=== PATIENT | female | born 1985 | race African-American/Black ===

== ENCOUNTER 2016-10-02 09:08 | Observation (INO) | payer OTHER ==
[~2016-10-02] VITALS: Ht 162.6 cm; Wt 76.6 kg
[~2016-10-02 09:08] MED LIST: DICL75 PO
[2016-10-02 09:16] VITALS: BP 114/71; PULSE 95; RESP 15; TEMP 97.8; O2SAT 99
[2016-10-02] MEDS ORDERED: SODIUM CHLORIDE 0.9% FLUSH 5 ML FLUSH IVF PRN ×2 (10:00→17:45)
[2016-10-02] MEDS ORDERED: ONDANSETRON HCL 4 MG/2 ML VIAL IVP ONE (10:00)
[2016-10-02] MEDS ORDERED: MORPHINE SULFATE 4 MG/ML INJ IV PUSH ONE (10:00)
--- NOTE | 2016-10-02 10:01 | PD ---
HPI Chief Complaint: Abdominal Pain Time Seen by Provider: 09:52 Travel History International Travel<30 days: No Contact w/Intl Traveler<30days: No Traveled to known affect area: No History of Present Illness HPI Patient is a 31-year-old female at 2.5 days of abdominal pain. States the pain is crampy, epigastric and right upper quadrant/right flank mild to moderate. She denies any nausea, vomiting, fevers or chills. No abnormal bowel or bladder symptoms. Patient has had a previous tubal ligation and does not believe she could be . Menses are regular. Previous abdominal hernia repair surgery. No history of obstruction. PFSH Past Medical History Blood Disorders: No Anxiety: Yes Cancer: Yes (CERVICAL) Diminished Hearing: No Hypertension: Yes (NO MEDS) Reproductive: Yes (HX HPV) Immunizations Current: Yes ?: Not : 3 Para: 3 Miscarriage: 0 : 0 Ectopic : No Ovarian Cysts: No Tubal Ligation: Yes (2006) Past Surgical History Abdominal Surgery: Yes ( UMBILICAL HERNIA REPAIR NOVEMBER 2013) Gynecologic Surgery: Yes (LEEP PROCEDURE ) Hysterectomy: No Social History Alcohol Use: No Tobacco Use: No Substance Use: No Allergies-Medications (Allergen,Severity, Reaction): Coded Allergies: Antivert (Verified Allergy, Intermediate, hives, 05/11/16) Reported Meds & Prescriptions Reported Meds & Active Scripts Active No Active Prescriptions or Reported Medications Review of Systems Except as stated in HPI: all other systems reviewed are Neg Physical Exam Narrative GENERAL: Well-appearing female in no acute distress SKIN: Warm and dry. HEAD: Normocephalic. EYES: No scleral icterus. No injection or drainage. ENT: Mucous membranes pink and moist. NECK: Supple CARDIOVASCULAR: Regular rate and rhythm. RESPIRATORY: No accessory muscle use. GASTROINTESTINAL: Abdomen soft, right upper quadrant and right flank less then epigastric tenderness to palpation without rebound or guarding. Old surgical scars well-healed MUSCULOSKELETAL: Normal gait NEUROLOGICAL: Awake and alert. Normal speech. PSYCHIATRIC: Appropriate mood and affect; insight and judgment normal. Data Data Last Documented VS Vital Signs Date Time Temp Pulse Resp B/P Pulse Ox O2 Delivery O2 Flow Rate FiO2 10/02/16 12:58 18 10/02/16 12:55 92 119/68 97 Room Air 10/02/16 09:16 97.8 Orders Complete Blood Count With Diff (10/02/16 09:54) Comprehensive Metabolic Panel (10/02/16 09:54) Lipase (10/02/16 09:54) Urinalysis - C+S If Indicated (10/02/16 09:54) Us Abdomen Gallbladder (10/02/16 ) Iv Access Insert/Monitor (10/02/16 09:54) Ecg Monitoring (10/02/16 09:54) Oximetry (10/02/16 09:54) Morphine Inj (Morphine Inj) (10/02/16 10:00) Ondansetron Inj (Zofran Inj) (10/02/16 10:00) Sodium Chloride 0.9% Flush (Ns Flush) (10/02/16 10:00) Ed Urine Pregnancytest Poc (10/02/16 09:54) Acetaminophen (Tylenol) (10/02/16 10:15) Ct Abd/Pel W/O Iv Contrast (10/02/16 12:28) Ketorolac Inj (Toradol Inj) (10/02/16 12:45) Ketorolac Inj (Toradol Inj) (10/02/16 12:45) Piperacil-Tazo 4.5 Gm Premix (Zosyn 4.5 (10/02/16 14:15) Labs Laboratory Tests Test 10/02/16 10/02/16 09:55 10:05 White Blood Count 13.2 TH/MM3 Red Blood Count 4.95 MIL/MM3 Hemoglobin 12.4 GM/DL Hematocrit 38.3 % Mean Corpuscular Volume 77.5 FL Mean Corpuscular Hemoglobin 25.0 PG Mean Corpuscular Hemoglobin 32.3 % Concent Red Cell Distribution Width 14.2 % Platelet Count 361 TH/MM3 Mean Platelet Volume 7.9 FL Neutrophils (%) (Auto) 88.7 % Lymphocytes (%) (Auto) 5.8 % Monocytes (%) (Auto) 5.0 % Eosinophils (%) (Auto) 0.3 % Basophils (%) (Auto) 0.2 % Neutrophils # (Auto) 11.7 TH/MM3 Lymphocytes # (Auto) 0.8 TH/MM3 Monocytes # (Auto) 0.7 TH/MM3 Eosinophils # (Auto) 0.0 TH/MM3 Basophils # (Auto) 0.0 TH/MM3 CBC Comment DIFF FINAL Differential Comment Sodium Level 136 MEQ/L Potassium Level 4.0 MEQ/L Chloride Level 104 MEQ/L Carbon Dioxide Level 24.0 MEQ/L Anion Gap 8 MEQ/L Blood Urea Nitrogen 8 MG/DL Creatinine 0.88 MG/DL Estimat Glomerular Filtration 90 ML/MIN Rate Random Glucose 118 MG/DL Calcium Level 9.1 MG/DL Total Bilirubin 0.5 MG/DL Aspartate Amino Transf 19 U/L (AST/SGOT) Alanine Aminotransferase 12 U/L (ALT/SGPT) Alkaline Phosphatase 69 U/L Total Protein 8.6 GM/DL Albumin 3.5 GM/DL Lipase 112 U/L Urine Color YELLOW Urine Turbidity HAZY Urine pH 5.5 Urine Specific [place] 1.028 Urine Protein TRACE mg/dL Urine Glucose (UA) NEG mg/dL Urine Ketones NEG mg/dL Urine Occult Blood NEG Urine Nitrite NEG Urine Bilirubin NEG Urine Urobilinogen 2.0 MG/DL Urine Leukocyte Esterase NEG Urine RBC 1 /hpf Urine WBC 1 /hpf Urine Squamous Epithelial 5 /hpf Cells Urine Mucus MANY /lpf Microscopic Urinalysis Comment CULT NOT INDICATED MDM Medical Decision Making Medical Screen Exam Complete: Yes Emergency Medical Condition: Yes Medical Record Reviewed: Yes Differential Diagnosis 31-year-old female with previous abdominal hernia repair, tubal ligation here with complaint of right upper quadrant/right flank pain for the last 2.5 days. Differential includes hepatobiliary pathology, pancreatitis, gastritis, peptic ulcer disease, pyelonephritis, ureterolithiasis and less likely appendicitis, bowel obstruction, /ectopic . Narrative Course Patient placed on monitor, IV established and blood obtained. Morphine and Zofran ordered but patient declines requesting Tylenol only which was administered. CBC, CMP, lipase, urinalysis and urine test obtained and notable for WBC 13.2. Ultrasound the gallbladder showed fluid adjacent to the pancreatic head unsure whether this is free fluid or fluid filled bowel. Patient still uncomfortable and continuing to decline morphine. Given Toradol instead. CT of the abdomen and pelvis obtained showing acute appendicitis. Patient was given Zosyn and will be admitted to surgery for further operative management. Diagnosis Primary Impression: Acute appendicitis Qualified Code: K35.3 - Acute appendicitis with localized peritonitis Admitting Information Admitting Physician Requests: Observation Scripts No Active Prescriptions or Reported Meds Berkley Poole MD Oct 02, 2016 10:01
[2016-10-02] MEDS ORDERED: ACETAMINOPHEN 500 MG CPLT PO ONE (10:15)
[2016-10-02 10:17] LABS: AUTOMATED NEUTROPHIL # 11.7 TH/MM3 (1.8-7.7); BASOPHIL % 0.2 % (0.0-2.0); EOSINOPHIL % 0.3 % (0.0-4.0); HEMATOCRIT 38.3 % (35.0-46.0); HEMO FLAGS DIFF FINAL; LYMPH % 5.8 % (9.0-44.0); LYMPHOCYTE # 0.8 TH/MM3 (1.0-4.8); MEAN CELL VOLUME 77.5 FL (80.0-100.0); MEAN CORPUSCULAR HGB CONC 32.3 % (32.0-36.0); NEUT % 88.7 % (16.0-70.0); PLATELET COUNT 361 TH/MM3 (150-450); RED BLOOD COUNT 4.95 MIL/MM3 (4.00-5.30); RED CELL DISTRIBUTION WIDTH 14.2 % (11.6-17.2); WHITE BLOOD COUNT 13.2 TH/MM3 (4.0-11.0)
[2016-10-02 10:24] LABS: BLOOD, URINE NEG (NEG); COMMENT (UR) CULT NOT INDICATED; GLUCOSE,URINE NEG (NEG); KETONE, URINE NEG (NEG); MUCUS URINE MANY /lpf (OCC); NITRITE,URINE NEG (NEG); PH, URINE 5.5 (5.0-8.5); SQUAMOUS EPITHELIAL CELL URINE 5 /hpf (0-5); URINE COLOR YELLOW (YELLW/STRAW)
[2016-10-02 10:25] LABS: CULTURE IF INDICATED CULT NOT INDICATED
[2016-10-02 10:38] LABS: ALKALINE PHOSPHATASE 69 U/L (45-117); ALT (GPT) 12 U/L (10-53); ANION GAP 8 MEQ/L (5-15); AST (GOT) 19 U/L (15-37); BLOOD UREA NITROGEN 8 MG/DL (7-18); CHLORIDE 104 MEQ/L (98-107); GLOMERULAR FILTRATION RATE 90 ML/MIN (>89); SODIUM (NA) 136 MEQ/L (136-145); TOTAL BILIRUBIN ADULT 0.5 MG/DL (0.2-1.0)
[2016-10-02] MEDS ORDERED: ONDANSETRON HCL 4 MG/2 ML VIAL IV PUSH ONE (12:00)
[2016-10-02] MEDS ORDERED: NEOSTIGMINE 3 MG/3 ML SYR IV ONE (12:00)
[2016-10-02] MEDS ORDERED: PROPOFOL 200 MG/20 ML AMP IV ONE (12:00)
[2016-10-02 12:19] VITALS: PULSE 83; RESP 18; O2SAT 99
--- NOTE | 2016-10-02 12:25 | RADRPT ---
EXAM DATE/TIME: 10/02/2016 10:57 [facility] COMPARISON: No previous studies available for comparison. INDICATIONS : Right upper quadrant pain. MEDICAL HISTORY : Hypertension. Cervical cancer. HPV. SURGICAL HISTORY : Tubal ligation. Umbilical hernia repair. LEEP. ENCOUNTER: Initial ACUITY: 1 day PAIN SCORE: 0/10 LOCATION: Right upper quadrant MEASUREMENTS: LIVER: 14.2 cm length COMMON DUCT: 4 mm RIGHT KIDNEY: 11.7 x 3.9 x 5.3 cm FINDINGS: LIVER: Normal echotexture without focal lesion or ductal dilatation. COMMON DUCT: No intraluminal mass or stone visualized. GALLBLADDER: Contains no stones, demonstrates no wall thickening or pericholecystic fluid. PANCREAS: The visualized portions are within normal limits. There is some fluid seen medial to the pancreatic head. Isn't certain if this is free fluid or essentially within the adjacent duodenum. RIGHT KIDNEY: No evidence of hydronephrosis, stone, or mass. CONCLUSION: Fluid seen adjacent to the pancreatic head. It is uncertain if this is free fluid or related to fluid -filled bowel. Christopher Oneill MD on October 02, 2016 at 12:18 Board Certified Radiologist. This report was verified electronically.
[2016-10-02] MEDS ORDERED: KETOROLAC TROMETHAMINE 30 MG/ML (IVP) VIAL IV PUSH ONE (12:45)
[2016-10-02] MEDS ORDERED: KETOROLAC TROMETHAMINE 60 MG/2 ML (IM) VIAL IM ONE (12:45)
[2016-10-02 12:55] VITALS: BP 119/68; PULSE 92; RESP 18; O2SAT 97
--- NOTE | 2016-10-02 14:10 | RADRPT ---
EXAM DATE/TIME: 10/02/2016 13:24 [facility] COMPARISON: No previous studies available for comparison. INDICATIONS : Mid abdomen pain radiating to back for two days. ORAL CONTRAST: No oral contrast ingested. RADIATION DOSE: 8.32 CTDIvol (mGy) MEDICAL HISTORY : Hypertension. Hernia, umbilical. Cervical cancer SURGICAL HISTORY : Tubal ligation. Umbilical hernia repair.Loop procedure ENCOUNTER: Initial ACUITY: 2 days PAIN SCALE: 9/10 LOCATION: Abdomen TECHNIQUE: Volumetric scanning of the abdomen and pelvis was performed. Using automated exposure control and ad justment of the mA and/or kV according to patient size, radiation dose was kept as low as reasonably achievable to obtain optimal diagnostic quality images. FINDINGS: LOWER LUNGS: The visualized lower lungs are clear. LIVER: Homogeneous density without lesion. There is no dilation of the biliary tree. No calcified gallston es. SPLEEN: Normal size without lesion. PANCREAS: Within normal limits. KIDNEYS: Normal in size and shape. There is no mass, stone, or hydronephrosis. ADRENAL GLANDS: Within normal limits. VASCULAR: There is no aortic aneurysm. BOWEL/MESENTERY: Extensive inflammatory changes right lower quadrant. Inflamed prominent tubular structure right lower quadrant consistent with appendicitis. No abscess. There is some minimal fluid present. No extralumi nal air. ABDOMINAL WALL: Within normal limits. RETROPERITONEUM: There is no lymphadenopathy. BLADDER: No wall thickening or mass. REPRODUCTIVE: Within normal limits. INGUINAL: There is no lymphadenopathy or hernia. MUSCULOSKELETAL: Within normal limits for patient age. CONCLUSION: 1. Findings consistent with acute appendicitis with adjacent inflammatory changes and fluid. 2. Abdomen/pelvis is otherwise unremarkable. Sriram Wood MD on October 02, 2016 at 14:07 Board Certified Radiologist. This report was verified electronically.
[2016-10-02] MEDS ORDERED: PIPERACIL-TAZO 4.5 GM PREMIX 100 ML IV ONE (14:15)
--- NOTE | 2016-10-02 14:47 | HHI.HP ---
HPI Service General surgery Primary Care Physician No Primary Care Physician Admission Diagnosis appendicitis Chief Complaint: Abdominal pain History of Present Illness This is a 31-year-old female who presents with 2 days of abdominal pain. Initially she had a more vague upper abdominal pain which she felt was bad gas. It persisted and became more localized in the periumbilical and right mid abdomen. She tried milk of magnesia which did not help. She tried to go to work today and she had nausea and vomiting. She's had some chills. She never had pain like this before. She has a past surgical history of tubal ligation and umbilical hernia repair with mesh. 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 She was evaluated in the emergency department and noted to have leukocytosis of 13,000. She had right upper quadrant pain and therefore gallbladder ultrasound was ordered. However, it was unremarkable. A CT scan was then ordered and she was found to have inflammation along the right colon with a dilated and inflamed appendix. Review of Systems Constitutional: COMPLAINS OF: Chills, DENIES: Fatigue Eyes: DENIES: Eye inflammation, Eye pain Respiratory: DENIES: Cough, Shortness of breath Cardiovascular: DENIES: Chest pain, Palpitations Gastrointestinal: COMPLAINS OF: Abdominal pain, Nausea, Vomiting Musculoskeletal: DENIES: Muscle aches, Stiffness Integumentary: DENIES: Pruritus, Rash Neurologic: DENIES: Headache, Localized weakness Past Family Social History Past Medical History None Past Surgical History Tubal ligation Umbilical hernia with mesh Reported Medications Reported Meds & Active Scripts Active No Active Prescriptions or Reported Medications Allergies: Coded Allergies: Antivert (Verified Allergy, Intermediate, hives, 05/11/16) Active Ordered Medications Current Medications Medications (Trade) Dose Ordered Sig/Rigoberto Route Start Time Stop Time Status Last Admin IV Flush 2 ml 2 ml UNSCH PRN IVF 10/02/16 10:00 (Zosyn 4.5 Gm Premix) 100 ml @ 200 mls/hr ONCE ONCE IV 10/02/16 14:15 10/02/16 14:44 Family History Noncontributory Social History 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 She denies tobacco or alcohol use. Physical Exam Vital Signs Vital Signs Date Time Temp Pulse Resp B/P Pulse Ox O2 Delivery O2 Flow Rate FiO2 10/02/16 12:58 18 10/02/16 12:55 92 18 119/68 97 Room Air 10/02/16 12:19 83 18 99 Room Air 10/02/16 09:16 97.8 95 15 114/71 99 Physical Exam GENERAL: Awake and alert. No acute distress. Cooperative. HEAD: Normocephalic. Atraumatic. EYES: Pupils equal round and reactive to light bilaterally. No scleral icterus. CHEST: Lungs clear to auscultation bilaterally with no wheezing or rhonchi. No respiratory distress. CARDIOVASCULAR: Regular rate and rhythm. ABDOMEN: Well-healed port site incisions. Soft. Mild tenderness to palpation in the right lower quadrant. A mass is palpable and there is some overlying muscle guarding. EXTREMITIES: No cyanosis or edema. SKIN: Warm, dry, nonjaundiced. Laboratory Laboratory Tests Test 10/02/16 10/02/16 09:55 10:05 White Blood Count 13.2 Red Blood Count 4.95 Hemoglobin 12.4 Hematocrit 38.3 Mean Corpuscular Volume 77.5 Mean Corpuscular Hemoglobin 25.0 Mean Corpuscular Hemoglobin 32.3 Concent Red Cell Distribution Width 14.2 Platelet Count 361 Mean Platelet Volume 7.9 Neutrophils (%) (Auto) 88.7 Lymphocytes (%) (Auto) 5.8 Monocytes (%) (Auto) 5.0 Eosinophils (%) (Auto) 0.3 Basophils (%) (Auto) 0.2 Neutrophils # (Auto) 11.7 Lymphocytes # (Auto) 0.8 Monocytes # (Auto) 0.7 Eosinophils # (Auto) 0.0 Basophils # (Auto) 0.0 CBC Comment DIFF FINAL Differential Comment Sodium Level 136 Potassium Level 4.0 Chloride Level 104 Carbon Dioxide Level 24.0 Anion Gap 8 Blood Urea Nitrogen 8 Creatinine 0.88 Estimat Glomerular Filtration 90 Rate Random Glucose 118 Calcium Level 9.1 Total Bilirubin 0.5 Aspartate Amino Transf 19 (AST/SGOT) Alanine Aminotransferase 12 (ALT/SGPT) Alkaline Phosphatase 69 Total Protein 8.6 Albumin 3.5 Lipase 112 Urine Color YELLOW Urine Turbidity HAZY Urine pH 5.5 Urine Specific Burt 1.028 Urine Protein TRACE Urine Glucose (UA) NEG Urine Ketones NEG Urine Occult Blood NEG Urine Nitrite NEG Urine Bilirubin NEG Urine Urobilinogen 2.0 Urine Leukocyte Esterase NEG Urine RBC 1 Urine WBC 1 Urine Squamous Epithelial 5 Cells Urine Mucus MANY Microscopic Urinalysis Comment CULT NOT INDICATED Result Diagram: 10/02/16 0955 10/02/[address] abdomen and pelvis shows appendicitis with adjacent inflammation and fluid Assessment and Plan Assessment and Plan 31-year-old female with acute appendicitis. She has history of umbilical hernia repair with mesh. I recommend to proceed with laparoscopic, possible open, appendectomy. I discussed the surgery in detail including risk and benefits with the patient and her mother. She desires to proceed. Plan for likely discharge home tomorrow. Pancho,Kirit DELGADO Oct 02, 2016 14:47
[2016-10-02 15:03] VITALS: BP 146/85; PULSE 88; RESP 18; TEMP 98.1; O2SAT 100
[2016-10-02] MEDS ORDERED: BUPIVACAINE/EPINEPHRINE 0.5% PF 30 ML VIAL ONE (15:05)
[2016-10-02] MEDS ORDERED: FAMOTIDINE 20 MG/2 ML VIAL ONE (15:51)
[2016-10-02] MEDS ORDERED: MIDAZOLAM HCL 2 MG/2 ML VIAL ONE (15:52)
[2016-10-02] MEDS ORDERED: DEXAMETHASONE SOD PHOS 4 MG/ML VIAL ONE (15:52)
[2016-10-02] MEDS ORDERED: ONDANSETRON HCL 4 MG/2 ML VIAL IV PRN (17:45)
[2016-10-02] MEDS ORDERED: MORPHINE SULFATE 4 MG/ML INJ IV PRN (17:45)
[2016-10-02] MEDS ORDERED: NALOXONE HCL 0.4 MG/ML AMP IV PRN (17:45)
[2016-10-02] MEDS ORDERED: Post-op Orders (for Pharmacy) MISC XX ONE (17:45)
[2016-10-02] MEDS: PANTOPRAZOLE SODIUM 40 MG VIAL IV SCH (17:45)
[2016-10-02] MEDS ORDERED: diphenhydrAMINE HCL 50 MG/ML VIAL IV PRN (17:45)
--- NOTE | 2016-10-02 17:47 | PD.OP ---
cc: Kirit Deleon MD Operative Report Date of Surgery: Oct 02, 2016 Preoperative Diagnosis: (1) Acute appendicitis Postoperative Diagnosis: (1) Acute appendicitis with appendiceal abscess Procedure: Laparoscopic appendectomy Anesthesia: GETA Surgeon: Kirit Deleon Pit Manager(s): Erin Joiner CFA Operation and Findings: EBL: 5 cc Complications: None apparent Operative findings: The patient had inflamed distended appendix. The midportion of the appendix was densely adherent to the lateral wall of the cecum. The tip of the appendix was buried towards the retroperitoneum. There was pus pocket identified and drained during the procedure. A drain was placed. The patient also had omental adhesions to the umbilical area with mesh visualized. Ports were placed to avoid the mesh. Procedure in detail: The patient was taken to the operating room placed in the supine position with left arm tucked. General endotracheal anesthesia was induced and the abdomen was prepped and draped in usual sterile fashion. Surgical timeout was performed to verify correct patient procedure and site. Perioperative antibiotics were administered as necessary. Local anesthetic was injected in the skin and subcutaneous tissue in the left mid abdomen and a 5 mm incision made. Using the 5 mm Optiview trocar with laparoscope the abdomen was directly entered. Was then insufflated to 15 mmHg with CO2 gas which the patient tolerated well. The patient was then placed in Trendelenburg position and turned slightly to the left. A 5 mm mm port was placed under laparoscopic visualization of the suprapubic area. The periumbilical area had omental adhesions and mesh was visualized. Just inferior to the mesh a 5 mm port was placed. The suprapubic port was then changed to a 12 mm port. Attention was turned to the right lower quadrant and the appendix was buried into the retroperitoneum laterally. It was bluntly dissected free and elevated. It was very dilated distended and indurated especially in the midportion. The midportion was adherent to the lateral wall of the cecum. Careful dissection using the Harmonic scalpel was used to divide the mesoappendix and free the appendix from the retroperitoneum and cecum. A pocket of pus was entered and was drained. The appendix was then seen to be directly entering the cecum and the base was healthy and noninflamed. Two #1 PDS Endoloops were placed at the base the appendix and the appendix transected with Harmonic scalpel. It was then removed using an Endo Catch bag. The appendiceal stump was intact with no leakage. The right lower quadrant pelvis and all right abdomen were copiously irrigated with normal saline. The cecum was again inspected. It was intact with no injury. A 19 Indonesian round drain was placed to the left abdominal port site and laid in the right lower quadrant and pelvis. The fascia at the 12 mm port site was closed with a single 0 Vicryl suture. Skin closed with subcuticular Monocryl as well as Dermabond. The patient tolerated the procedure well was extubated and taken to PACU in stable condition. Kirit Deleon MD Oct 02, 2016 17:47
[2016-10-02] MEDS ORDERED: fentaNYL CITRATE 250 MCG/5 ML AMP ONE (17:58)
[2016-10-02] MEDS: LACTATED RINGER'S 1000 ML INJ 1,000 ML IV SCH (18:05)
[2016-10-02] MEDS ORDERED: *morphine SULFATE 8 MG/ML PERIprocedure ONLY ONE (18:19)
[2016-10-02] MEDS ORDERED: DO NOT ADM ANY ANTICOAGULANT DRUGS XX PRN (18:30)
[2016-10-02 20:00] VITALS: BP 137/81; PULSE 83; RESP 16; TEMP 97.2; O2SAT 98
[2016-10-02 20:32] VITALS: O2SAT 96
[2016-10-02] MEDS: SODIUM CHLORIDE 0.9% FLUSH 5 ML FLUSH IVF SCH (21:00)
[2016-10-02] MEDS: PIPERACIL-TAZO 3.375 GM PREMIX 50 ML IV SCH (22:26)
[2016-10-02] MEDS: oxyCODONE/ACETAMINOPHEN 10 MG/325 MG TAB PO PRN (22:30)
[2016-10-03] VITALS: BP 147/87; PULSE 75; RESP 16; TEMP 96.4; O2SAT 100
[2016-10-03] MEDS: LACTATED RINGER'S 1000 ML INJ 1,000 ML IV SCH ×3 (03:33→22:38)
[2016-10-03 04:00] VITALS: BP 116/67; PULSE 72; RESP 16; TEMP 97.4; O2SAT 100
[2016-10-03] MEDS: PIPERACIL-TAZO 3.375 GM PREMIX 50 ML IV SCH ×4 (05:01→21:37)
[2016-10-03 08:02] VITALS: BP 111/57; PULSE 76; RESP 16; TEMP 97.6; O2SAT 98
[2016-10-03] MEDS: oxyCODONE/ACETAMINOPHEN 5 MG/325 MG TAB PO PRN ×2 (08:33→14:00)
[2016-10-03] MEDS: PANTOPRAZOLE SODIUM 40 MG VIAL IV SCH (08:34)
[2016-10-03] MEDS: SODIUM CHLORIDE 0.9% FLUSH 5 ML FLUSH IVF SCH ×2 (08:35→21:38)
[2016-10-03] MEDS ORDERED: OXYC1TAB63 PO (11:16)
[2016-10-03] MEDS ORDERED: AUGM875T PO (11:17)
--- NOTE | 2016-10-03 11:18 | HHI.PR ---
Subjective Subjective Notes Tolerating clears. No nausea. Pain controlled. Objective Vitals/I&O Vital Signs Date Time Temp Pulse Resp B/P Pulse Ox O2 Delivery O2 Flow Rate FiO2 10/03/16 08:02 97.6 76 16 111/57 98 10/02/16 20:32 21 10/02/16 18:25 Nasal Cannula [address] abdomen and pelvis shows appendicitis with adjacent inflammation and fluid Narrative Exam NAD nonlabored breathing Abd: soft, mild post op ttp, inc c/d/i, amparo ss output A/P Assessment and Plan 31 yo F POD 1 s/p lap appy for appendicitis with abscess. Doing well post op. D/c home after lunch. Regular diet. F/u with me Saturday. Activity- no heavy lifting. Stable condition. Rx- percocet., augmentin. Kirit Deleon MD Oct 03, 2016 11:17
[2016-10-03 12:00] VITALS: BP 106/59; PULSE 70; RESP 16; TEMP 96.9; O2SAT 99
[2016-10-03 16:00] VITALS: BP 104/55; PULSE 92; RESP 16; TEMP 96.2; O2SAT 99
[2016-10-03 20:00] VITALS: BP 113/68; PULSE 92; RESP 18; TEMP 96.9; O2SAT 100
[2016-10-03] MEDS: oxyCODONE/ACETAMINOPHEN 10 MG/325 MG TAB PO PRN (22:41)
[2016-10-04] VITALS: BP 121/71; PULSE 99; RESP 16; TEMP 98.8; O2SAT 95
[2016-10-04] MEDS: PIPERACIL-TAZO 3.375 GM PREMIX 50 ML IV SCH ×2 (04:17→08:22)
[2016-10-04 08:00] VITALS: BP 109/59; PULSE 92; RESP 16; TEMP 98.2; O2SAT 100
[2016-10-04] MEDS: PANTOPRAZOLE SODIUM 40 MG VIAL IV SCH (08:22)
[2016-10-04] MEDS: LACTATED RINGER'S 1000 ML INJ 1,000 ML IV SCH (08:22)
[2016-10-04] MEDS: SODIUM CHLORIDE 0.9% FLUSH 5 ML FLUSH IVF SCH (08:23)
[2016-10-04 10:01] VITALS: O2SAT 96
--- NOTE | 2016-10-04 10:13 | HHI.DS ---
Discharge Summary Admission Date Oct 02, 2016 at 14:26 Discharge Date: Oct 04, 2016 Admitting Diagnosis appendicitis with abscess Procedures Laparoscopic appendectomy Brief History This is a 31-year-old female who presents with 2 days of abdominal pain. Initially she had a more vague upper abdominal pain which she felt was bad gas. It persisted and became more localized in the periumbilical and right mid abdomen. She tried milk of magnesia which did not help. She tried to go to work today and she had nausea and vomiting. She's had some chills. She never had pain like this before. She has a past surgical history of tubal ligation and umbilical hernia repair with mesh. 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 She was evaluated in the emergency department and noted to have leukocytosis of 13,000. She had right upper quadrant pain and therefore gallbladder ultrasound was ordered. However, it was unremarkable. A CT scan was then ordered and she was found to have inflammation along the right colon with a dilated and inflamed appendix. CBC/BMP: 10/02/16 0955 10/02/16 0955 Significant Findings Laboratory Tests Test 10/02/16 10/02/16 09:55 10:05 White Blood Count 13.2 TH/MM3 (4.0-11.0) Mean Corpuscular Volume 77.5 FL (80.0-100.0) Mean Corpuscular Hemoglobin 25.0 PG (27.0-34.0) Neutrophils (%) (Auto) 88.7 % (16.0-70.0) Lymphocytes (%) (Auto) 5.8 % (9.0-44.0) Neutrophils # (Auto) 11.7 TH/MM3 (1.8-7.7) Lymphocytes # (Auto) 0.8 TH/MM3 (1.0-4.8) Random Glucose 118 MG/DL (74-106) Total Protein 8.6 GM/DL (6.4-8.2) Urine Turbidity HAZY (CLEAR) Urine Mucus MANY /lpf (OCC) PE at Discharge NAD nonlabored breathing Abd: soft, mild post op ttp, inc c/d/i, amparo ss output Hospital Course Post op she had some abdominal pain and required staying a second night. She had soup from [employer] which she tolerated well. AMPARO output is ss. Pt Condition on Discharge: Good Discharge Disposition: Discharge Home Discharge Instructions DIET: Follow Instructions for: As Tolerated, No Restrictions Activities you can perform: See Additionl Instruction Other Activity Instructions: Ok to shower tomorrow. No heavy lifting. No driving while on narcotics. Follow up Referrals: Surgical - 2 Weeks with Kirit Deleon MD New Medications: Amoxicillin-Clavulanate (Augmentin) 875-125 mg Tab 875 MG PO BID not for use in CrCl <30 ml/min. Infection #10 Ref 0 TAB Oxycodone-Acetaminophen (Oxycodone-Acetaminophen) 5-325 mg Tab 1-2 TAB PO Q4H PRN PAIN #30 TAB Kirit Deleon MD Oct 04, 2016 10:13
== END 2016-10-04 11:02 | disposition home or self-care (01) ==
LOC: NEPE 09:08 → NEDA 14:26 → N07A 18:47
PROVIDERS: ADMIT Surgery; ATTEND Surgery
DX: K35.3 Acute appendicitis with localized peritonitis (principal); F41.9 Anxiety disorder, unspecified; I10 Essential (primary) hypertension; Z85.41 Personal history of malignant neoplasm of cervix uteri; Z88.8 Allergy status to other drugs, medicaments and biological substances
CPT/HCPCS: 00840; 44970; 74176; 76705; 80053; 81001; 83690; 84703; 85025; 88304; 94150; 96372; 99285; C9113; G0378; J1100; J1885; J2250; J2270; J2405; J2543; J2710; J3010; J7120